=== PATIENT | male | born 1940 | race Caucasian/White ===

== ENCOUNTER 2019-02-19 17:59 | Inpatient (IN) | payer OTHER, MEDICARE ==
[2019-02-18] MEDS: LISINOPRIL 5 MG TABLET PO SCH (22:30)
[~2019-02-19] VITALS: Ht 177.8 cm; Wt 99.3 kg
[2019-02-19 20:20] VITALS: BP_SYST 110
--- NOTE | 2019-02-19 20:20 | NUR ---
Admission Note Received patient as direct admit with steady gait with a cane. Initial Plan of Care discussed-patient verbalized understanding. Oriented to room, call light, pain management and safety.
--- NOTE | 2019-02-19 20:40 | NUR ---
SPOKE TO DR. JETER, and received admit order, CMP, CBC, BMP, lipid, chest Xray, Urine culture, urinalysis, MR of lumbar, c-spine with contrast, continue home medications, Accu checks Q6, diet of CCHO, Saline lock for IV. Patient asks for something to help him rest, New orders of restoril 15 mg HS received. Doctor says that he is on his way.
--- NOTE | 2019-02-19 20:57 | NUR ---
Dr. Cast at bedside, speaking to patient.
[2019-02-19] MEDS ORDERED: GABA-331 PO (21:26)
[2019-02-19] MEDS ORDERED: NITR0.4T47 SL (21:26)
[2019-02-19] MEDS ORDERED: ACET1TAB25 PO (21:26)
[2019-02-19] MEDS ORDERED: CARV3.1246 PO (21:26)
[2019-02-19] MEDS ORDERED: GLU850 PO (21:26)
[2019-02-19] MEDS ORDERED: GABA800T PO (21:26)
[2019-02-19] MEDS ORDERED: BACL10TA PO (21:26)
[2019-02-19] MEDS ORDERED: LISI-209 PO (21:26)
[2019-02-19] MEDS ORDERED: FENO145T PO (21:26)
[2019-02-19] MEDS ORDERED: NON-FORMULARY MEDICATION (Gabapentin 600 MG) PO SCH (22:30)
[2019-02-19] MEDS: BACLOFEN 10 MG TABLET PO SCH (22:30)
[2019-02-19] MEDS ORDERED: NITROGLYCERIN 0.4 MG TAB.SUBL SL PRN (22:30)
[2019-02-19] MEDS ORDERED: ASPI-1153 PO (22:40)
[2019-02-19] MEDS: ACETAMINOPHEN/CODEINE 300 MG-30 MG TABLET PO PRN (23:47)
[2019-02-20] MEDS: GABAPENTIN 300 MG CAPSULE PO SCH ×4 (00:31→20:53)
[2019-02-20] MEDS: TEMAZEPAM 15 MG CAPSULE PO SCH ×2 (00:35→20:55)
[2019-02-20] MEDS: CARVEDILOL 3.125 MG TABLET (COREG) PO SCH ×3 (00:35→20:54)
--- NOTE | 2019-02-20 01:30 | NUR ---
SPOKE TO DR. JETER, as patient does not want to do MRI if he does not have something to help him stay still as he has tried in the past 3 times. New orders for Ativan 2mg one time IVP received for the MRI and new orders for CAT scan of the head.
[2019-02-20 01:53] VITALS: BP_SYST 154
--- NOTE | 2019-02-20 02:10 | NUR ---
Patient's blood sugar of 118 after rechecking after blood sugar of 241 and not having sliding scale order available, patient refuses insulin, patient educated provided and symptoms of hypoglycemia provided. No signs of hyperglycemia observed. Will continue to monitor.
[2019-02-20 02:16] LABS: BILIRUBIN,URINE NEGATIVE (NEGATIVE); BLOOD, URINE NEGATIVE (NEGATIVE); CLARITY/URINE CLEAR (CLEAR); COLOR,URINE YELLOW (YELLOW); GLUCOSE,URINE 2+ (NEGATIVE); KETONES,URINE NEGATIVE (NEGATIVE); LEUKOCYTE ESTERASE ,URINE NEGATIVE (NEGATIVE); NITRITE, URINE NEGATIVE (NEGATIVE); PROTEIN URINE NEGATIVE (NEGATIVE); UROBILINOGEN,URINE 0.2 (0.2-1.0)
[2019-02-20 02:22] LABS: BACTERIA,URINE FEW /HPF (None Seen); WBC,URINE 0-3 /HPF (0-3)
[2019-02-20] MEDS ORDERED: LORazepam 2 MG/ML VIAL IVP ONE ×2 (05:00→19:00)
[2019-02-20 06:35] LABS: BASOPHILS % (AUTO) 0.6 % (0.0-2.0); EOSINOPHILS # (AUTO) 0.2 K/uL (0.0-0.4); EOSINOPHILS % (AUTO) 2.9 % (0.0-4.0); HEMATOCRIT 37.2 % (36-54); HEMOGLOBIN 12.3 g/dL (14.0-18.0); LYMPHOCYTES # (AUTO) 2.6 K/uL (1.0-5.5); MEAN CORPUSCULAR HEMOGLOBIN 27 pg (27-31); MEAN CORPUSCULAR HGB CONC 33 % (32-36); MEAN CORPUSCULAR VOLUME 83 fL (79.0-98.0); MONOCYTES # (AUTO) 0.7 K/uL (0.0-1.0); MONOCYTES % (AUTO) 10.8 % (1.7-9.3); NEUTROPHILS # (AUTO) 3.1 K/uL (1.8-7.7); NEUTROPHILS % (AUTO) 46.7 % (40.0-70.0); PLATELET COUNT (AUTO) 225 K/uL (130-430); RED CELL DISTRIBUTION WIDTH 15.1 % (9.0-15.0); WHITE BLOOD COUNT (AUTO) 6.7 K/uL (4.8-10.8)
[2019-02-20] MEDS: INSULIN LISPRO SLIDING SCALE 100 UNITS/ML VIAL (humaLOG) SUBCUT PRN ×3 (06:59→17:53)
--- NOTE | 2019-02-20 07:30 | NUR ---
OPENING NOTES: PATIENT IS AWAKE AND ALERT x4 SITTING DOWN IN BED. PATIENT DENIES ANY PAIN AT THE MOMENT. NO SIGNS OF DISTRESS OR SHORTNESS OF BREATH NOTED. PATIENT IS TOLERATING OXYGEN AT ROOM AIR. IV SITE IS PATENT WITH NO SIGNS OF INFILTRATION. PATIENT IN STABLE CONDITION. SAFETY AND FALL PRECAUTIONS ARE IN PLACE. BED IS LOCKED IN LOWEST POSITION WITH CALL LIGHT IN REACH. WILL CONTINUE TO MONITOR PATIENT FOR ANY CHANGES.
--- NOTE | 2019-02-20 07:30 | NUR ---
CLOSING NOTES Patient is agitated as patient states that he thought that "he was getting his wrists, knees and left ankle checked and not his spine checked up." IV at left hand, saline lock, dresings c/d/i. Call light within reach, bed alarm on, bed at lowest position. Patient also hopes that the television in his room gets fixed. Will endorse care to oncoming shift.
[2019-02-20 07:44] LABS: ALANINE AMINOTRANSFERASE 28 U/L (12-78); ANION GAP 5 (5-15); ASPARTATE AMINOTRANSFERASE 14 U/L (10-37); CALCIUM 9.1 mg/dL (8.4-11.0); CHLORIDE 102 mmol/L (98-107); CREATININE 0.79 mg/dL (0.55-1.30); GLUCOSE 220 mg/dL (70-99); POTASSIUM 3.9 mmol/L (3.5-5.1); SODIUM SERUM 134 mmol/L (136-145); TOTAL BILIRUBIN 0.3 mg/dL (0.0-1.0); UREA NITROGEN, BLOOD 16 mg/dL (8-21)
[2019-02-20 07:45] LABS: ALBUMIN 3.4 g/dL (3.4-4.8); CHOLESTEROL 199 mg/dL (<200); HDL CHOLESTEROL 28 mg/dL (>45); LDL CHOLESTEROL 121 mg/dL (<100); TRIGLYCERIDES 328 mg/dL (30-150)
[2019-02-20 08:00] VITALS: BP_SYST 133
[2019-02-20] MEDS: LISINOPRIL 5 MG TABLET PO SCH (09:28)
[2019-02-20] MEDS: ASPIRIN 81 MG TABLET(ECOTRIN) PO SCH (09:28)
[2019-02-20] MEDS: FENOFIBRATE 160 MG TABLET PO SCH (09:29)
[2019-02-20] MEDS: BACLOFEN 10 MG TABLET PO SCH ×3 (09:30→20:52)
--- NOTE | 2019-02-20 10:20 | NUR ---
RN ROUNDS: PATIENT IS AWAKE AND ALERT X4 LAYING DOWN IN BED. PATIENT IS TOLERATING OXYGEN AT ROOM AIR. NO SIGNS OF DISTRESS OR SHORTNESS OF BREATH NOTED. PATIENT IN STABLE CONDITION. WILL CONTINUE TO MONITOR PATIENT FOR ANY CHANGES.
--- NOTE | 2019-02-20 10:30 | NUR ---
PAGED: DR. JETER WAS CALLED AND LEFT MESSAGE REGARDING MRI CLARIFICATION. AWAITING CALL BACK.
--- NOTE | 2019-02-20 10:40 | NUR ---
Neuro consult called: for Dr. Llanes, regarding ataxia, ordered by Dr. Cast, spoke with
[2019-02-20] MEDS: ACETAMINOPHEN/CODEINE 300 MG-30 MG TABLET PO PRN ×2 (10:47→17:48)
[2019-02-20 12:08] VITALS: BP_SYST 123
--- NOTE | 2019-02-20 12:30 | NUR ---
RN ROUNDS: PATIENT IS AWAKE AND ALERT x4 SITTING UP IN BED. NO SIGNS OF DISTRESS OR SHORTNESS OF BREATH NOTED. PATIENT IN STABLE CONDITION. WILL CONTINUE TO MONITOR PATIENT FOR ANY CHANGES.
--- NOTE | 2019-02-20 13:35 | NUR ---
SS NOTES: DRY PAN FEEDER was referred by nursing to see patient for living along with no support system and DCP. Demographic information confirmed. Pt is a 78 y/o single male who lives in an apartment with his friend. Pt states he was going to the bathroom when he fell and unsure why. Pt is a direct admit arranged by PCP. Pt lives on the first floor with no steps to get to the front door. Pt is independent with his ADL's and utilizes a cane to help with his gait. Pt owns a cane and a walker only. Pt states his source of income is $1600/month and does not identify any support system. Pt denies any history or current mental health/substance use/abuse. Pt states he has been falling a lot due to his neuropathy and has not had any meds for them for "a couple of years now". Pt states he will refuse to go to a SNF/HHS if indicated. No further SS needs identified but will f/u if needed. DRY PAN FEEDER offered to give advanced directive/POLST, but patient refused.
--- NOTE | 2019-02-20 14:10 | NUR ---
RN ROUNDS: PATIENT IS ASLEEP IN BED. NO SIGNS OF DISTRESS OR SHORTNESS OF BREATH NOTED. PATIENT IN STABLE CONDITION. WILL CONTINUE TO MONITOR PATIENT FOR ANY CHANGES.
[2019-02-20 16:13] VITALS: BP_SYST 123
--- NOTE | 2019-02-20 16:40 | NUR ---
RN ROUNDS: PATIENT IS AWAKE AND ALERT x4 WALKING AROUND THE ROOM. NO SIGNS OF DISTRESS OR SHORTNESS OF BREATH NOTED. PATIENT IN STABLE CONDITION. WILL CONTINUE TO MONITOR PATIENT FOR ANY CHANGES.
--- NOTE | 2019-02-20 16:50 | NUR ---
CALLED: CALLED DR. JETER FOR CLARIFICATION ON MRI ORDERS. INFORMED PATIENT ABOUT THE CLARIFICATION AND PATIENT WANTS TO SPEAK TO HIM. DR. JETER WILL COME SEE PATIENT.
--- NOTE | 2019-02-20 17:42 | NUR ---
MD ROUNDS: DR. JETER MAKING HIS ROUNDS. AWARE OF PATIENT'S CONDITION. NEW ORDERS GIVEN.
--- NOTE | 2019-02-20 18:45 | NUR ---
CLOSING NOTES: PATIENT IS AWAKE AND ALERT x4 LAYING DOWN IN BED. PATIENT DENIES ANY PAIN AT THE MOMENT. NO SIGNS OF DISTRESS OR SHORTNESS OF BREATH NOTED. PATIENT IS TOLERATING OXYGEN AT ROOM AIR. IV SITE IS PATENT WITH NO SIGNS OF INFILTRATION. PATIENT IN STABLE CONDITION. SAFETY AND FALL PRECAUTIONS REMAINED IN PLACE THROUGHOUT THE SHIFT. BED IS LOCKED IN LOWEST POSITION WITH CALL LIGHT IN REACH. WILL ENDORSE PATIENT CARE TO ONCOMING WIRE MACHINE OPERATOR NURSE.
[2019-02-20 19:00] VITALS: BP_SYST 131
--- NOTE | 2019-02-20 19:15 | NUR ---
change of shift.pt.presents quiescent affect;calm,resting viewing tv programming.pt.capbale to reposition self/ambulate.\pt.presents iv acces lock.general status stable.respiratory status stable;unlabored @room air.call loght/telphoe w/in reach of the pt.
[2019-02-20 20:00] VITALS: BP_SYST 131
--- NOTE | 2019-02-20 20:00 | NUR ---
pt.assessed.v/s assessed;values w/in normal limits.i have apprised the pt.that i may provide snacks/beverages w/in the shift.no requests posited@this hour.pt.presents iv access;intact;patent.locked.pt.capable to reposition self.general status stable.respiratory status stable;unlabored @fantasma air:02-sat%=96%.call light/telephone w/in the reach of the pt.
--- NOTE | 2019-02-20 21:00 | NUR ---
2100pmedications administered.pt.capable to ingest medications whole w/out difficulty.pt.had requested snacks/beverages. i have provided the snacks/diet coke.
--- NOTE | 2019-02-20 22:00 | NUR ---
pt.assessed.pt.presents quiescent affect;calm,somnolent.general status stable.respiratory status stable;unlabored.pt.capable to reposition self.call light/telephone w/in reach of the pt.
[2019-02-21] VITALS: BP_SYST 125
--- NOTE | 2019-02-21 | NUR ---
pt.assessed.v/s assessed;values w/in normal limits.no c/o pain,nausea.i have assessed the blood glucose;value:180mg/dl.i have administered insulin;humalog;2-units.i inquired if the pt.presents requests@this hour.pt stated any snack items.i have provided snacks to the pt.pt capable to reposition self.general status stable.respiratory status stable;unlabored.call light/telephone w/in reach of the pt.
[2019-02-21] MEDS: INSULIN LISPRO SLIDING SCALE 100 UNITS/ML VIAL (humaLOG) SUBCUT PRN ×3 (00:45→11:43)
--- NOTE | 2019-02-21 01:58 | NUR ---
pt.assessed.pt.presents quiescent affect;calm,somnolent.general status stable.respiratory status stable;unlabored.pt.capable to reposition self.call light/telephone w/in reach of the pt.
--- NOTE | 2019-02-21 04:00 | NUR ---
pt.assessed pt.presents quiescent affect;calm,somnolent.general status stable.respiratory status stable;unlabored. pt.capable to reposition self.call light/telephone w/in reach of the pt.
--- NOTE | 2019-02-21 06:30 | NUR ---
pt.assessed.blood glucose assessed;value;220mg/dl.i have administered insulin humalog;4-units.pt. to submit to mri: 02/21/19. i have reviewed the questionnaire,allergies,have witnessed the pt.sign the consent.i have paged mri dept;pt to receive the administration ativan;2mg ivp p/t the study.no answer.i have apprised the pt that i have paged the mri dept/no c/o pain,nausea. call light/telephone w/in reach of the pt.
[2019-02-21 08:00] VITALS: BP_SYST 142
--- NOTE | 2019-02-21 08:00 | NUR ---
Initial notes- Sitting in the chair eating breakfast. complain of back pain. will medicate. Inform patient that pharmacy don't carry tylenol no.4, so they change the order to tylenol no. 3. Update plan of care. Safety precaution observed. Enc. patient to call for help as needed.
[2019-02-21] MEDS: ACETAMINOPHEN/CODEINE 300 MG-30 MG TABLET PO PRN (08:17)
[2019-02-21] MEDS: LISINOPRIL 5 MG TABLET PO SCH (08:18)
[2019-02-21] MEDS: CARVEDILOL 3.125 MG TABLET (COREG) PO SCH (08:19)
[2019-02-21] MEDS: BACLOFEN 10 MG TABLET PO SCH (08:19)
[2019-02-21] MEDS: ASPIRIN 81 MG TABLET(ECOTRIN) PO SCH (08:19)
[2019-02-21] MEDS: FENOFIBRATE 160 MG TABLET PO SCH (08:20)
[2019-02-21] MEDS: GABAPENTIN 300 MG CAPSULE PO SCH (09:54)
--- NOTE | 2019-02-21 10:00 | NUR ---
Notes- Pt is walking in the hallway with his cane. pt complaining that the TV is not working since he came in and wants another room. transfer patient to the other room.
--- NOTE | 2019-02-21 11:00 | NUR ---
MRI- MRI staff called, per MRI radiologist is calling DR. Cast. Informed MRI that patient's wants to be fully sedated. Per MRI, patient can't be fully sedated.
[2019-02-21 12:00] VITALS: BP_SYST 132
--- NOTE | 2019-02-21 12:14 | NUR ---
Notes- Watching tv, Pain is controlled at this time.
--- NOTE | 2019-02-21 12:44 | NUR ---
MRI staff at bedside talking with the patient.
--- NOTE | 2019-02-21 12:49 | NUR ---
Per MRI staff, pt does not want to do MRI if not fully sedated. MRI cancelled at this time for pt refusal.
--- NOTE | 2019-02-21 13:30 | NUR ---
MD ROUNDS Dr. Cast seen patient at bedside and talk to the patient. MD ordered to discharge patient home if MRI can't be done. Pt wants to be fully sedated/asleep during MRI because he is very claustrophobic . MD wants if they can do MRI spine only, Called MRI but they are only available until 1330 for today.
--- NOTE | 2019-02-21 15:00 | NUR ---
DISCHARGE D/C PT HOME, DISCHARGE INSTRUCTION GIVEN AND DISCUSSED WITH PATIENT. PAIN ON HIS BACK IS CONTROLLED AT THIS TIME. AMBULATE WITH CANE WITH STEADY GAIT. NO ACUTE DISTRESS NOTED. ARM BAND AND IVL REMOVED.
== END 2019-02-21 15:00 | disposition home or self-care (01) | DRG 74 ==
LOC: SMU 19:55
PROVIDERS: ADMIT Internal Medicine; ATTEND Internal Medicine
DX: E11.42 Type 2 diabetes mellitus with diabetic polyneuropathy (principal); M54.30 Sciatica, unspecified side; I10 Essential (primary) hypertension; Z96.651 Presence of right artificial knee joint; M19.90 Unspecified osteoarthritis, unspecified site; G89.29 Other chronic pain; Z85.828 Personal history of other malignant neoplasm of skin; Z79.899 Other long term (current) drug therapy; Z79.82 Long term (current) use of aspirin
CPT/HCPCS: 36415; 70450-TC; 71045; 80053; 80061; 81000-TC; 82962; 85025; 87086